=== PATIENT | female | born 1965 | race Caucasian/White ===

== ENCOUNTER 2018-05-24 13:50 | Emergency (ER) | payer MEDICAID ==
[~2018-05-24] VITALS: Ht 165.1 cm; Wt 65.8 kg
[2018-05-24 13:57] VITALS: BP 132/84
--- NOTE | 2018-05-24 14:00 | NUR ---
c/o persistant dysuria x 3 wks----treated 2 1/2 wks ago with pcn, pt adds she finished full course but burning pain reignited white vag dc with itching hx---denies rx---none
[2018-05-24 14:12] VITALS: BP 132/84
--- NOTE | 2018-05-24 14:12 | NUR ---
AAO PT DISCHARGE WITH STABLE VS; DISCHARGE BY DR RIVERA PRESCRIBED WITH MACROBID, PYRIDIUM; ALL QUESTIONS ANSWERED
[2018-05-24 14:51] LABS: APPEARANCE,URINE SL CLOUDY (CLEAR); BILIRUBIN,URINE 2+ (NEGATIVE); BLOOD, URINE TRACE-I (NEGATIVE); COLOR,URINE YELLOW (YELLOW); LEUKOCYTE ESTERASE ,URINE 3+ (NEGATIVE); NITRITE, URINE NEGATIVE (NEGATIVE); UGLUCOSE NEGATIVE (NEGATIVE)
[2018-05-24 15:09] LABS: RBC,URINE 3-10 (FEW) /HPF (0-5); WBC,URINE 20-60 /HPF (0-5)
== END 2018-05-24 14:12 | disposition home or self-care (01) ==
LOC: MED 13:50
DX: N39.0 Urinary tract infection, site not specified (principal); F17.200 Nicotine dependence, unspecified, uncomplicated
CPT/HCPCS: 81001; 81025; 87086; 99284

== ENCOUNTER 2018-06-08 16:07 | Emergency (ER) | payer MEDICAID ==
[~2018-06-08] VITALS: Ht 165.1 cm; Wt 68.0 kg
[2018-06-08 16:15] VITALS: BP 137/88
--- NOTE | 2018-06-08 16:24 | NUR ---
PATIENT PRESENTS TO ED WITH SEEN IN OUR ER 05/24/2018 DX UTI RX ANTIBIOTIC PT STATES SHE FINISHED PRESCRIBED COURSE BUT CONTINUES WITH VAG ITCHING BURNING DISCOMFORT UPON VOIDING AND VAG MUCOUS DC. DENIES N/V/D; SKIN IS PINK/WARM/DRY; AAOX4 WITH EVEN AND STEADY GAIT; LUNGS CLEAR BL; HR EVEN AND REGULAR; PT DENIES ANY FEVER, CP, SOB, OR COUGH AT THIS TIME; PATIENT STATES PAIN OF 0/10 AT THIS TIME; VSS; PATIENT POSITIONED FOR COMFORT; HOB ELEVATED; BEDRAILS UP X2; BED DOWN. ER MD MADE AWARE OF PT STATUS.
[2018-06-08 17:01] VITALS: BP 161/107
--- NOTE | 2018-06-08 17:02 | NUR ---
Patient discharged with v/s stable. Written and verbal after care instructions given and explained. Patient alert, oriented and verbalized understanding of instructions. Ambulatory with steady gait. All questions addressed prior to discharge. ID band removed. Patient advised to follow up with PMD. Rx of CIPRO, PYRIDIUM given. Patient educated on indication of medication including possible reaction and side effects. Opportunity to ask questions provided and answered.
== END 2018-06-08 17:02 | disposition home or self-care (01) ==
LOC: MED 16:07
DX: N39.0 Urinary tract infection, site not specified (principal); F17.200 Nicotine dependence, unspecified, uncomplicated
CPT/HCPCS: 81002; 81025; 87086; 99283

== ENCOUNTER 2018-06-19 13:04 | Emergency (ER) | payer MEDICAID ==
[~2018-06-19] VITALS: Ht 165.1 cm; Wt 65.8 kg
[2018-06-19 13:28] VITALS: BP 138/100
[2018-06-19 15:18] LABS: APPEARANCE,URINE TURBID (CLEAR); COLOR,URINE YELLOW (YELLOW)
[2018-06-19 15:19] LABS: BILIRUBIN,URINE NEGATIVE (NEGATIVE); BLOOD, URINE NEGATIVE (NEGATIVE); LEUKOCYTE ESTERASE ,URINE 1+ (NEGATIVE); NITRITE, URINE NEGATIVE (NEGATIVE); UGLUCOSE NEGATIVE (NEGATIVE)
[2018-06-19 15:41] LABS: RBC,URINE 0-5 (RARE) /HPF (0-5)
[2018-06-19 15:42] LABS: URINE AMORPHOUS URATE 3+ /HPF (None Seen)
[2018-06-19 16:43] VITALS: BP 138/100
[2018-06-21 06:14] LABS: CHLAMYDIA TRACHOMATIS AMP DNA Negative (Negative)
== END 2018-06-19 16:43 | disposition home or self-care (01) ==
LOC: MED 13:04
DX: B96.89 Other specified bacterial agents as the cause of diseases classified elsewhere (principal); N39.0 Urinary tract infection, site not specified; A59.9 Trichomoniasis, unspecified; F17.210 Nicotine dependence, cigarettes, uncomplicated
CPT/HCPCS: 36415; 81001; 81025; 87070; 87086; 87205; 87210; 87491; 99284

== ENCOUNTER 2020-09-29 15:37 | Emergency (ER) | payer MEDICAID, OTHER ==
[~2020-09-29] VITALS: Ht 165.1 cm; Wt 74.8 kg
[2020-09-29 15:39] VITALS: BP 142/108
--- NOTE | 2020-09-29 15:45 | NUR ---
55YO F C/O LOWER ABDOMINAL PAIN RADIATING TO LOWER BACK, URINARY BURNING X 1 WEEK. PAIN 5/10. DENIES FEVER, DENIES HEMATURIA. UPON ASSESSMENT, VSS. ABDOMEN SOFT, NONTENDER. BOWEL SOUNDS ACTIVE ON ALL QUADRANTS. PT POSITIONED COMFORTABLY IN BED WITH 2 SIDERAILS UP. ERMD MADE AWARE OF PT STATUS. PMH: DENIES NKA
[2020-09-29] MEDS ORDERED: KETOROLAC 30 MG/ML VIAL ONE (16:05)
[2020-09-29] MEDS: KETOROLAC 30 MG/ML VIAL IM ONE (16:08)
[2020-09-29 16:15] VITALS: BP 142/108
--- NOTE | 2020-09-29 16:15 | NUR ---
Patient discharged with v/s stable. Written and verbal after care instructions given and explained. Patient alert, oriented and verbalized understanding of instructions. Ambulatory with steady gait. All questions addressed prior to discharge. ID band removed. Patient advised to follow up with PMD. Rx of IBUROFEN, NITROFURANTOIN, PHENAZOPYRIDINE given. Patient educated on indication of medication including possible reaction and side effects. Opportunity to ask questions provided and answered.
== END 2020-09-29 16:15 | disposition home or self-care (01) ==
LOC: MED 15:37
DX: N39.0 Urinary tract infection, site not specified (principal); R03.0 Elevated blood-pressure reading, without diagnosis of hypertension; F17.210 Nicotine dependence, cigarettes, uncomplicated
CPT/HCPCS: 81002; 96372; 99283; J1885

== ENCOUNTER 2022-02-28 14:27 | Emergency (ER) | payer OTHER ==
[~2022-02-28] VITALS: Ht 165.1 cm; Wt 80.3 kg
[2022-02-28 14:35] VITALS: BP 168/106
[2022-02-28] MEDS ORDERED: NITR100C7 PO (14:58)
[2022-02-28 15:05] LABS: BILIRUBIN,URINE NEGATIVE (NEGATIVE); BLOOD, URINE 1+ (NEGATIVE); COLOR,URINE YELLOW (YELLOW); LEUKOCYTE ESTERASE ,URINE TRACE (NEGATIVE); NITRITE, URINE NEGATIVE (NEGATIVE); UGLUCOSE NEGATIVE (NEGATIVE)
[2022-02-28 15:07] LABS: APPEARANCE,URINE HAZY (CLEAR)
[2022-02-28 15:09] VITALS: BP 158/90
--- NOTE | 2022-02-28 15:12 | NUR ---
Patient discharged with v/s stable. Written and verbal after care instructions given and explained. Patient alert, oriented and verbalized understanding of instructions. Ambulatory with steady gait. All questions addressed prior to discharge. ID band removed. Patient advised to follow up with PMD. Rx of Nitrofurantoin Monohyd given. Patient educated on indication of medication including possible reaction and side effects. Opportunity to ask questions provided and answered.
== END 2022-02-28 15:11 | disposition home or self-care (01) ==
LOC: MED 14:27
DX: N39.0 Urinary tract infection, site not specified (principal); Z79.2 Long term (current) use of antibiotics
CPT/HCPCS: 81001; 87086; 99283

== ENCOUNTER 2022-08-09 15:00 | Emergency (ER) | payer OTHER ==
[~2022-08-09] VITALS: Ht 162.6 cm; Wt 70.3 kg
[~2022-08-09 15:00] MED LIST: NITR100C7 PO
[2022-08-09 15:12] VITALS: BP 169/100
--- NOTE | 2022-08-09 15:30 | NUR ---
PT SWABBED AND SENT TO LAB
[2022-08-09] MEDS ORDERED: IBUP-1842 PO (16:07)
[2022-08-09] MEDS ORDERED: PHEN177S23 PO (16:07)
--- NOTE | 2022-08-09 16:13 | NUR ---
DISCHARGED BY CRISTIANE DALEY. RX OF MOTRIN AND PHENOL SENT TO [facility]. DISCHARGE INSTRUCTIONS GIVEN.
== END 2022-08-09 16:13 | disposition home or self-care (01) ==
LOC: MED 15:00
DX: J06.9 Acute upper respiratory infection, unspecified (principal); Z20.822 Contact with and (suspected) exposure to COVID-19; Z79.899 Other long term (current) drug therapy
CPT/HCPCS: 87081; 99283

== ENCOUNTER 2023-02-05 18:27 | Emergency (ER) | payer OTHER ==
[~2023-02-05] VITALS: Ht 165.1 cm; Wt 77.1 kg
[~2023-02-05 18:27] MED LIST changes: +IBUP-1842 PO; +PHEN177S23 PO
[2023-02-05 18:42] VITALS: BP 155/100
--- NOTE | 2023-02-05 19:09 | NUR ---
Patient being evaluated by physician at bedside.
[2023-02-05] MEDS ORDERED: KETOROLAC 60 MG/2 ML VIAL IM ONE (19:15)
--- NOTE | 2023-02-05 19:16 | NUR ---
Report given to MAXX Rivera for transfer of care.
[2023-02-05] MEDS ORDERED: CARI350T PO (19:19)
[2023-02-05] MEDS ORDERED: IBUP-2213 PO (19:19)
--- NOTE | 2023-02-05 19:28 | NUR ---
Patient resting in bed, A/Ox4, chest rise and fall symmetrical, no s/s of distress, on monitor.
[2023-02-05 19:55] VITALS: BP 142/91
== END 2023-02-05 19:55 | disposition home or self-care (01) ==
LOC: MED 18:27
DX: M54.50 Low back pain, unspecified (principal); Z79.899 Other long term (current) drug therapy
CPT/HCPCS: 81002; 96372; 99283; J1885